=== PATIENT | female | born 1990 | race Caucasian/White ===

== ENCOUNTER 2022-05-22 14:00 | Outpatient (CLI) | payer OTHER | END 2022-05-22 15:15 | disposition home or self-care (01) | LOC: PRENATAL 14:00 | PROVIDERS: ATTEND Obstetrics & Gynecology Maternal & Fetal Medicine | DX: O36.80X0 Pregnancy with inconclusive fetal viability, not applicable or unspecified (principal); Z36.0 Encounter for antenatal screening for chromosomal anomalies; O09.219 Supervision of pregnancy with history of pre-term labor, unspecified trimester; Z88.6 Allergy status to analgesic agent; Z3A.12 12 weeks gestation of pregnancy ==

== ENCOUNTER 2022-07-14 15:02 | Outpatient (CLI) | payer OTHER | END 2022-07-14 16:55 | disposition home or self-care (01) | LOC: PRENATAL 15:02 | PROVIDERS: ATTEND Obstetrics & Gynecology Maternal & Fetal Medicine | DX: O35.0XX0 Maternal care for (suspected) central nervous system malformation in fetus, not applicable or unspecified (principal); O35.3XX0 Maternal care for (suspected) damage to fetus from viral disease in mother, not applicable or unspecified; O09.219 Supervision of pregnancy with history of pre-term labor, unspecified trimester ==

== ENCOUNTER 2022-10-23 09:00 | Outpatient (CLI) | payer OTHER | END 2022-10-23 11:01 | disposition home or self-care (01) | LOC: PRENATAL 09:00 | PROVIDERS: ATTEND Obstetrics & Gynecology Maternal & Fetal Medicine | DX: O36.8199 Decreased fetal movements, unspecified trimester, other fetus (principal); Z3A.34 34 weeks gestation of pregnancy ==

== ENCOUNTER 2022-11-12 07:39 | Inpatient (IN) | payer OTHER ==
[~2022-11-12] VITALS: Ht 162.6 cm; Wt 87.5 kg
[2022-11-12] MEDS ORDERED: PEPCID AC20 MG PO (07:45)
[2022-11-12] MEDS ORDERED: PRENATAL + DHA1 EAC1 PO (07:45)
== END 2022-11-14 11:26 | disposition home or self-care (01) | DRG 807 ==
LOC: OB/GYN 07:39 → LDR 07:39 → OB/GYN 10:26
PROVIDERS: ADMIT Obstetrics & Gynecology; ATTEND Obstetrics & Gynecology
PROC: 10E0XZZ Delivery of Products of Conception, External Approach (ICD-10-PCS; principal; 2022-11-12)
PROC: 0HQ9XZZ Repair Perineum Skin, External Approach (ICD-10-PCS; 2022-11-12)
PROC: 4A033R1 Measurement of Arterial Saturation, Peripheral, Percutaneous Approach (ICD-10-PCS; 2022-11-12)
DX: O70.0 First degree perineal laceration during delivery (principal); Z37.0 Single live birth; Z3A.37 37 weeks gestation of pregnancy; Z20.822 Contact with and (suspected) exposure to COVID-19